=== PATIENT | male | born 1970 | race Caucasian/White ===

== ENCOUNTER 2017-05-26 22:06 | Emergency (ER) | payer BC ==
[~2017-05-26] VITALS: Ht 177.8 cm; Wt 103.8 kg
[~2017-05-26 22:06] MED LIST: ATORVASTATIN CA80 MG PO; ESCITALOPRAM OX10 MG PO; LISINOPRIL20 MG PO; OMEPRAZOLE40 M1 PO
[2017-05-26 22:11] VITALS: BP 153/106
[2017-05-26 23:06] LABS: HEMOGLOBIN 14.3 G/DL (12.5-16.6); MCH 29.1 PG (29.0-34.0); MCHC 33.3 G/DL (30.0-36.0); MCV 87.6 FL (86-99); PLATELET COUNT 262 K/uL (156-360); RBC DIS.WIDTH-CV 12.8 % (11.8-14.6); RBC DIS.WIDTH-SD 41.1 % (39-53); RED BLOOD COUNT 4.91 M/uL (4.00-5.50); WHITE BLOOD COUNT 9.7 K/uL (4.1-10.2)
[2017-05-26 23:18] LABS: ALBUMIN 4.1 g/dL (3.2-4.8); CHLORIDE 110 mEq/L (99-109); POTASSIUM 3.6 mEq/L (3.7-5.4); SODIUM 141 mEq/L (136-147)
[2017-05-26 23:20] LABS: GLUCOSE 122 mg/dL (70-99); TOTAL PROTEIN 6.8 g/dL (6.4-8.3)
[2017-05-26 23:22] LABS: TOTAL BILIRUBIN 0.3 mg/dL (0.0-1.0)
[2017-05-26 23:24] LABS: ALKALINE PHOSPHATASE 63 IU/L (3-129); GFR ESTIMATE (CALCULATED) > 59 mL/min/ (58.99-99999)
[2017-05-26 23:25] LABS: UREA NITROGEN (BUN) 30 mg/dL (9-23)
[2017-05-26 23:26] LABS: AST (GOT) 20 IU/L (2-34)
[2017-05-26 23:27] LABS: ALT (GPT) 38 IU/L (3-49)
== END 2017-05-27 01:25 | disposition home or self-care (01) ==
LOC: EME 22:06
DX: I10 Essential (primary) hypertension (principal); R42 Dizziness and giddiness; R51 Headache; Z82.49 Family history of ischemic heart disease and other diseases of the circulatory system; Z87.891 Personal history of nicotine dependence
CPT/HCPCS: 80053; 85027; 93005; 99281; 99284